=== PATIENT | female | born 1970 | race Caucasian/White ===

== ENCOUNTER 2019-07-25 10:55 | Emergency (ER) | payer SELFPAY ==
[2019-07-25 11:03] VITALS: BP 149/93; PULSE 114; RESP 14; TEMP 36.5; O2SAT 100
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
[2019-07-25] MEDS: KETOROLAC 30 MG/ML VIAL (*BKC) IV PUSH (11:36)
--- NOTE | 2019-07-25 11:45 | PC.NURSE ---
Patient moaning and thrashing on stretcher. Refused Xrays until I get something for pain. Advised pain medications had been given; responded with It's not fucking working. Charge nurse and PA aware. Patient can be heard at nurses station, screaming and cussing.
== END 2019-07-25 12:13 | disposition left against medical advice (07) ==
LOC: ANHED 11:56
PROVIDERS: Emergency Provider Emergency Medicine
DX: M25.571 Pain in right ankle and joints of right foot (principal); V49.40XA Driver injured in collision with unspecified motor vehicles in traffic accident, initial encounter
CPT/HCPCS: 96374; 96375; 99284; J0131; J1885

== ENCOUNTER 2021-10-29 22:05 | Emergency (ER) | payer OTHER, SELFPAY ==
--- NOTE | ~2021-10-29 | XR_ITS ---
XR hand RT min 3V 10/29/2021 22:21 Indication: Right hand pain Procedure: 4 views right hand Comparison: No prior studies for comparison. Findings: There is an oblique fracture of the fifth metacarpal neck with volar angulation. Mild displ acement. No other fractures identified. No erosive changes. No focal soft tissue abnormality. There i s a small ossific density just distal to the ulna, likely related to remote trauma. Impression: 1: Mildly displaced oblique distal fifth metacarpal neck fracture with volar angulation. Reviewed, dictated and finalized at location A. Impression: 1: Mildly displaced oblique distal fifth metacarpal neck fracture with volar an gulation.
[2021-10-29 22:25] VITALS: BP 142/76; PULSE 99; RESP 18; TEMP 36.7; O2SAT 97
--- NOTE | 2021-10-29 23:17 | PC.NURSE ---
Assumed care of pt at this time. Pt alert and upright in chair beside stretcher, updated on POC
[2021-10-30] MEDS: HYDROcodone/acetaminophen (*CRX) 5-325 MG TABLET 1 TAB PO (00:04)
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
[2021-10-30 01:38] VITALS: BP 169/114; PULSE 87; RESP 16; O2SAT 100
== END 2021-10-30 01:38 | disposition home or self-care (01) ==
PROVIDERS: Emergency Provider Emergency Medicine
DX: S62.336A Displaced fracture of neck of fifth metacarpal bone, right hand, initial encounter for closed fracture (principal); F17.200 Nicotine dependence, unspecified, uncomplicated; Y04.2XXA Assault by strike against or bumped into by another person, initial encounter
CPT/HCPCS: 29125; 73130; 99284; A9270